=== PATIENT | female | born 1970 | race Caucasian/White ===

== ENCOUNTER 2017-03-02 16:30 | Observation (INO) ==
[2017-03-02] MEDS ORDERED: Ondansetron 4 MG/2 ML VIAL IVP ONE (16:46)
[2017-03-02] MEDS ORDERED: 0.9 % Sodium Chloride 1,000 ML IVC ONE ×2 (16:46→18:20)
--- NOTE | 2017-03-02 16:46 | Emergency Department Note ---
Disposition Clinical Impression: Gastroenteritis, Dehydration, Acute renal insufficiency Disposition: Admitted As Inpatient Condition: Good Referrals: Yessi Schuster [Primary Care Provider] - Forms: ED Satisfaction Letter Abdominal Pain HPI - General Chief Complaint: ED Nausea/Vomiting/Diarrhea Stated Complaint: vomiting, stomache soreness Time Seen by Provider: 03/02/17 16:34 Source: patient Mode of arrival: private vehicle Limitations: no limitations Nursing Notes Reviewed: Yes Vital Signs Reviewed: Yes - History of Present Illness HPI Narrative: The patient relates that she has been taking the "stomach flu" for about a week. She laid she had nausea, vomiting and diarrhea. The diarrhea has abated but she continues with vomiting and sleeping. She has not been passing any blood or mucus. She states her abdomen is very sore from the vomiting without other localizing pain. She rates she is started getting weak and dizzy when she stands to walk around. She is concerned that she is getting dehydrated. She does note that she is urinating with less frequency. She denies any fevers or chills. Denies cough, chest pain or shortness of breath. She states she has been exposed her who had a similar syndrome. She denies concerned of food borne illness, recent antibiotics or recent travel. Pt Subjective Complaint: abdominal pain, other (Vomiting and diarrhea) Onset (ago): week(s) (1) Consistency: Worsening Location: diffuse Pain Severity: moderate Quality: aching, dull Radiation: none Migration to: no migration Improves with: rest Worsens with: vomiting, movement Context: sick contacts Associated symptoms: Reports: nausea, vomiting, diarrhea, anorexia. Denies: fever, chills, constipation, dysuria, hematemesis, hematochezia, melena, hematuria, syncope - Related Data Home Medications Medication Instructions Recorded Confirmed Alprazolam [Xanax] 0.5 mg PO QID 06/19/15 03/02/17 Citalopram Hydrobromide [Celexa] 40 mg PO DAILY 06/19/15 03/02/17 Neurontin 600 mg PO TID 06/19/15 03/02/17 Imitrex 25 mg PO DAILY PRN 10/05/15 03/02/17 Lisinopril [Zestril] 10 mg PO DAILY 02/28/16 03/02/17 Metoprolol [Lopressor] 100 mg PO BID 02/28/16 03/02/17 Topiramate [Topamax] 50 mg PO DAILY 04/12/16 03/02/17 TraZODone 100 mg PO HS 01/13/17 03/02/17 Previous Rx's Medication Instructions Recorded Pantoprazole Sodium [Protonix] 20 mg PO BID #30 tab 05/31/16 Allergies Allergy/AdvReac Type Severity Reaction Status Date / Time acetaminophen [From Fioricet] Allergy Drowsy Verified 01/28/17 23:18 butalbital [From Fioricet] Allergy Drowsy Verified 01/28/17 23:18 caffeine [From Fioricet] Allergy Drowsy Verified 01/28/17 23:18 diphenhydramine Allergy Drowsy Verified 01/28/17 23:18 [From Benadryl] ketorolac [From Toradol] Allergy Rash Verified 01/28/17 23:18 venlafaxine [From Effexor] AdvReac Seizure Verified 01/28/17 23:18 All systems ED: reviewed and negative except as stated. Abdominal Pain PMH - Past Medical History Medical history: Reports: CVA, hypertension, migraine Female Surgical History: Reports: appendectomy, cholecystectomy, other [employer] history: Reports: no [employer] history, other Psychiatric history: Reports: anxiety, bipolar, depression, panic disorder, other - Social History Smoking status: Never smoker Alcohol use: Reports: none Drug use: Reports: none Physical Exam - General Limitations: no limitations General appearance: alert, in no apparent distress - Head Head exam: atraumatic, normocephalic, normal inspection - Eye Eye exam: Present: normal appearance, PERRL, EOMI. Absent: scleral icterus, conjunctival injection - ENT ENT exam: normal exam, normal oropharynx, mucous membranes moist - Neck Neck exam: Present: normal inspection, full ROM, trachea midline. Absent: tenderness, lymphadenopathy - Chest Chest inspection: Present: normal inspection, symmetric chest wall rise - Respiratory Respiratory exam: Present: normal lung sounds bilaterally. Absent: respiratory distress, wheezes, prolonged expiratory phase - Cardiovascular Cardiovascular exam: Present: regular rate, normal rhythm, tachycardia, normal heart sounds - Abdominal Exam Abdominal exam: Present: soft, tenderness, normal bowel sounds. Absent: distention, guarding, rebound, rigidity Abdominal tenderness: Present: diffuse, mild - Extremities Exam Extremities exam: Present: normal inspection, full ROM, normal capillary refill. Absent: tenderness, pedal edema, calf tenderness - Expanded Lower Extremity Exam Neurovascular/Tendon exam: Present: normal capillary refill. Absent: motor deficit, sensory deficit, tendon deficit Gait: observed and normal - Back Exam Back exam: Present: normal inspection, full ROM. Absent: tenderness, CVA tenderness (R), CVA tenderness (L) - Neurological Exam Neurological exam: Present: alert, oriented X3, normal gait - Psychiatric Psychiatric exam: Present: normal affect, normal mood - Skin Skin exam: Present: warm, dry, intact, pallor. Absent: cyanosis, diaphoresis Course Vital Signs Temperature 99.5 F 03/02/17 16:35 Pulse Rate 118 03/02/17 16:35 Respiratory Rate 18 03/02/17 16:35 Blood Pressure 106/66 03/02/17 16:35 O2 Sat by Pulse Oximetry 95 03/02/17 16:35 Temperature 99.5 F 03/02/17 16:41 Pulse Rate 96 03/02/17 18:01 Respiratory Rate 20 03/02/17 18:01 Blood Pressure 95/50 03/02/17 18:01 O2 Sat by Pulse Oximetry 90 03/02/17 18:01 Oxygen Delivery Oxygen Delivery Room Air Abdominal Pain - Differential Diagnosis Differential Diagnosis: Likely: abdominal pain non-specific, gastroenteritis - Medical Records Medical records reviewed: Yes I reviewed the patient's medical records. - Lab Data Lab results reviewed: Yes I reviewed the patient's lab results. Result diagrams: 03/02/17 17:37 03/02/17 17:37 Lab Results 03/02/17 03/02/17 Range/Units 17:37 17:37 WBC 7.6 (4.3-11.1) K/mcL RBC 4.11 (3.82-4.97) M/mcL Hgb 10.4 L (11.5-15.4) g/dL Hct 31.9 L (35.3-44.9) % MCV 77.6 L (83.0-100.0) fL MCH 25.3 L (28.0-33.3) pg MCHC 32.6 (31.6-35.5) g/dL RDW 15.6 H (11.5-14.5) % Plt Count 261 (140-400) K/mcL MPV 8.7 L (9.4-12.4) fL Immature Gran % 1.6 (0-4) % Seg Neutrophils % 60.3 % Lymphocytes % 27.2 % Monocytes % 8.1 % Eosinophils % 2.1 % Basophils % 0.7 % Neutrophils # 4.6 (1.6-8.9) K/mcL Lymphocytes # 2.1 (0.6-4.6) K/mcL Monocytes # 0.6 (0.0-1.3) K/mcL Eosinophils # 0.2 (0.0-0.6) K/mcL Basophils # 0.1 (0.0-0.2) K/mcL Sodium 129 L (136-145) mEq/L Potassium 3.0 L (3.5-4.5) mEq/L Chloride 97 L (98-109) mEq/L Carbon Dioxide 17 L (19-29) mEq/L BUN 28 H (7-20) mg/dL Creatinine 2.34 H (0.57-1.11) mg/dL Est GFR ( Amer) 27 L (> 60) Est GFR (Non-Af Amer) 23 L (> 60) BUN/Creatinine Ratio 12 (6-26) Glucose 100 H (70-99) mg/dL Calculated Osmolality 274 L (280-300) Calcium 8.0 L (8.6-10.8) mg/dL
[2017-03-02] MEDS ORDERED: *HR* Nalbuphine 20 MG/ML AMPUL IVP ONE ×2 (16:47→18:21)
[2017-03-02 17:48] LABS: Basophils # 0.1 K/mcL (0.0-0.2); Basophils % 0.7 %; Eosinophils # 0.2 K/mcL (0.0-0.6); Eosinophils % 2.1 %; Hematocrit 31.9 % (35.3-44.9); Hemoglobin 10.4 g/dL (11.5-15.4); Immature Granulocytes % 1.6 % (0-4); Lymphocytes # 2.1 K/mcL (0.6-4.6); Lymphocytes % 27.2 %; Mean Corpuscular HGB Conc 32.6 g/dL (31.6-35.5); Mean Corpuscular Hemoglobin 25.3 pg (28.0-33.3); Mean Corpuscular Volume 77.6 fL (83.0-100.0); Mean Platelet Volume 8.7 fL (9.4-12.4); Monocytes # 0.6 K/mcL (0.0-1.3); Monocytes % 8.1 %; Neutrophils # 4.6 K/mcL (1.6-8.9); Platelet Count 261 K/mcL (140-400); Red Blood Count 4.11 M/mcL (3.82-4.97); Red Cell Distribution Width 15.6 % (11.5-14.5); Segmented Neutrophils % 60.3 %
[2017-03-02] MEDS ORDERED: Naloxone 0.4 MG/ML INJ IVP PRN (19:43)
[2017-03-02] MEDS ORDERED: Ondansetron 4 MG/2 ML VIAL IVP PRN (19:43)
[2017-03-02] MEDS ORDERED: SUMAtriptan 25 MG TABLET PO PRN (19:43)
[2017-03-02] MEDS: 0.9 % Sodium Chloride w KCl 20 MEQ/1,000 ML MLS IVC SCH (20:34)
[2017-03-02] MEDS: *HR* HYDROmorphone (PF) 1 MG/ML SYRINGE IVP PRN (21:37)
[2017-03-03] MEDS: 0.9 % Sodium Chloride w KCl 20 MEQ/1,000 ML MLS IVC SCH ×2 (01:01→10:29)
[2017-03-03] MEDS: *HR* HYDROmorphone (PF) 1 MG/ML SYRINGE IVP PRN ×5 (01:08→18:47)
[2017-03-03] MEDS: Gabapentin 300 MG CAPSULE PO SCH ×4 (01:08→21:49)
[2017-03-03 06:19] LABS: Potassium 4.3 mEq/L (3.5-4.5)
[2017-03-03] MEDS: Topiramate 25 MG TABLET PO SCH (10:28)
--- NOTE | 2017-03-03 11:32 | Internal Med History&Physical ---
Date of Encounter: 03/03/17 Time of Encounter: 10:45 Assessment and Plan (1) Vomiting and diarrhea Current visit: No Status: Resolved Suspect acute gastroenteritis. Will continue IV fluids and prn anti-emetics. Recheck labs in a.m. (2) Acute renal insufficiency Current visit: Yes Status: Acute Suspect secondary to dehydration from vomiting and diarrhea. IV fluids have been ordered. Follow-up labs today show significant improvement with creatinine decreased to 1.28 and estimated GFR now 45. (3) Hypertension Current visit: No Status: Chronic We will hold Lopressor and Zestril since she has borderline hypotension. Qualifiers: Hypertension type: essential hypertension Qualified Code(s): I10 - Essential (primary) hypertension (4) Microcytic anemia Current visit: No Status: Chronic Suspect iron deficiency. We will order anemia testing. Internal Medicine - H&P: HPI Chief complaint: Vomiting and diarrhea Admitted From: Home Plans for Post Hospital Care: Home History of present illness: Ms. Navarro is a 46 year old female who came to emergency room stating she had vomiting and diarrhea for the past one and half weeks. She noted minimal hematemesis with one episode of vomiting. She reports her diarrhea was liquid stool but no obvious blood. When her symptoms did not improve and she began to feel dizzy she decided to come to emergency room. She was found to have electrolyte imbalance with acute renal insufficiency and microcytic anemia. She was admitted to [facility] floor for ongoing care needs. She states she has not vomited since supper last evening. Her abdominal pain has improved. She was hospitalized approximately one year ago at [facility] with similar complaints. Her GI history is pertinent for hiatal hernia with occasional GERD symptoms. She had GI bleed in 2012 with EGD at [facility]. She states an ulcer was found. She has not had known bleeding since then but was iron deficient during her last [facility] stay January 2016 and was given iron infusion. She reports she had perforated abdominal viscus requiring surgical repair in 2014. She has had cholecystectomy but denies disorders of her liver or exocrine pancreas. Past Med Surg Social Fam HX - Past Medical History Medical history: CVA, hypertension, migraine Psychiatric history: anxiety, bipolar, depression, panic disorder, other - Past Surgical History Surgical History: appendectomy, cholecystectomy, orthopedic, other (Left ankle fixation), other (Bowel perforation October 2015, hiatal hernia repair, right frontal craniotomy and evacuation of subdural hemorrhage) - Social History Smoking Status: Never smoker Smokeless Tobacco Status: No Alcohol use: none Drug use: none - Family History Father Name: Winston Living Status: Still Living Hx Family Cardiac Disorders: Yes Hx Family Respiratory Disorders: Yes Hx Family Cancer: No Hx Family GI Disorders: No Hx Family Genitourinary Disorders: No Hx Family Endocrine Disorder: No Hx Family Musculoskeletal Disorders: No Hx Family Neuromuscular Disorders: No Hx Family Neurologic Disorders: No Hx Family HEENT Disorders: No Hx Family Autoimmune Disorders: No Hx Family Psychosocial Disorders: No Hx Family Medical Disorders: No Internal Medicine - H&P: Meds Alprazolam [Xanax] 0.5 mg PO QID 06/19/15 [History] Citalopram Hydrobromide [Celexa] 40 mg PO DAILY 06/19/15 [History] Neurontin 600 mg PO TID 06/19/15 [History] Imitrex 25 mg PO DAILY PRN 10/05/15 [History] Lisinopril [Zestril] 10 mg PO DAILY 02/28/16 [History] Metoprolol [Lopressor] 100 mg PO BID 02/28/16 [History] Topiramate [Topamax] 50 mg PO DAILY 04/12/16 [History] Pantoprazole Sodium [Protonix] 20 mg PO BID #30 tab 05/31/16 [Rx] TraZODone 100 mg PO HS 01/13/17 [History] Allergies acetaminophen [From Fioricet] Allergy (Verified 01/28/17 23:18) Drowsy butalbital [From Fioricet] Allergy (Verified 01/28/17 23:18) Drowsy caffeine [From Fioricet] Allergy (Verified 01/28/17 23:18) Drowsy diphenhydramine [From Benadryl] Allergy (Verified 01/28/17 23:18) Drowsy ketorolac [From Toradol] Allergy (Verified 01/28/17 23:18) Rash venlafaxine [From Effexor] Adverse Reaction (Verified 01/28/17 23:18) Seizure All Systems PM: A 10-system review of systems was performed and is negative for pertinent findings except as documented above in the HPI. Review of systems: Gen.: Her weight has increased from 79.515 kilograms at January 2016 hospitalization to 91.172 kg now Cardiovascular: She has history of hypertension. She had pulmonary embolism in 2009 following shoulder surgery. She denies [place] heart failure or other cardiovascular disorders. Respiratory: She is a lifelong nonsmoker and has no documented chronic lung disease. She wears BiPAP at bedtime without oxygen but denies a diagnosis of RUT. GI: As per history of present illness : She denies known chronic kidney disease. She states she does straight catheter at home twice daily for urinary retention. Neurologic: She had intracranial hemorrhage July 2014 with craniotomy procedure for decompression intervention. She had seizures following the stroke with her last seizure in 2013. She has migraine headaches. She has decreased left peripheral vision from stroke. Endocrine: She denies diabetes thyroid disease or hyperlipidemia Hematology/oncology: She has history of anemia and received IV iron infusion during the January 2016 hospitalization. She denies further iron therapy. She was also found to have B12 and folate deficiency during that stay but is uncertain how long she continued on those supplements. Psychiatric: She has panic disorder and bipolar disorder Musk skeletal: She has degenerative disc disease but denies significant arthritis gout or other bone joint or muscle disorders. - Constitutional Vitals: Temp Pulse Resp BP Pulse Ox 97.4 F L 93 18 95/61 99 03/03/17 03:55 03/03/17 08:32 03/03/17 08:32 03/03/17 08:32 03/03/17 08:32 Exam: Gen.: She is well-developed well-nourished female who appears in no severe distress at present time. HEENT: Head is atraumatic and normocephalic. Eyes: EOMI. There is no scleral icterus. Mouth: Mucosa is moist. Neck: Supple and nontender. There is no thyromegaly or adenopathy noted. Heart: Regular with rate approximately 100/m. No murmurs or gallops are heard. Lungs: No wheezes or crackles are heard. Abdomen: Bowel sounds are diminished. There is mild tenderness to palpation. No masses or guarding are noted. Extremities: There is no cyanosis edema clubbing noted. Dorsalis pedis and posterior tibial pulses are 1-2 over 2 bilaterally. Neurologic: Mental status: She is talkative but has difficulty recalling some details of her past history because of past intracranial hemorrhage with neurosurgical procedures. Cranial nerves: Smile is symmetric. Forehead wrinkles bilaterally. Tongue protrudes midline. EOMI. Motor: There is no pronator drift. Cerebellar: Finger to nose is intact bilaterally. Skin: Warm and dry Internal Med - H&P Results - Labs CBC & Chem 7: 03/02/17 17:37 03/03/17 05:35 Labs: BMP 03/03/17 05:35 Sodium 139 D Potassium 4.3 D Chloride 111 H Carbon Dioxide 17 L BUN 18 D Creatinine 1.28 H Glucose 92 Calcium 8.0 L
[2017-03-03] MEDS: 0.45 % Sodium Chloride w/KCl 20 MEQ/1,000 ML MLS IVC SCH (12:58)
[2017-03-03 14:26] LABS: Basophils % 0.6 %; Eosinophils # 0.2 K/mcL (0.0-0.6); Hemoglobin 9.5 g/dL (11.5-15.4); Immature Granulocytes % 0.7 % (0-4); Lymphocytes # 1.3 K/mcL (0.6-4.6); Lymphocytes % 19.6 %; Mean Corpuscular HGB Conc 31.7 g/dL (31.6-35.5); Mean Platelet Volume 9.6 fL (9.4-12.4); Monocytes # 0.5 K/mcL (0.0-1.3); Monocytes % 7.8 %; Neutrophils # 4.6 K/mcL (1.6-8.9); Platelet Count 238 K/mcL (140-400); Red Blood Count 3.66 M/mcL (3.82-4.97); Red Cell Distribution Width 15.9 % (11.5-14.5); Segmented Neutrophils % 68.3 %
[2017-03-03 14:41] LABS: Magnesium 2.1 mg/dL (1.6-2.6)
[2017-03-03 18:14] LABS: Folate 12.8 ng/mL (7.0-31.4)
[2017-03-04] MEDS: *HR* HYDROmorphone (PF) 1 MG/ML SYRINGE IVP PRN ×2 (00:47→10:45)
[2017-03-04] MEDS: 0.45 % Sodium Chloride w/KCl 20 MEQ/1,000 ML MLS IVC SCH (02:15)
[2017-03-04 05:47] LABS: Basophils % 0.5 %; Eosinophils # 0.2 K/mcL (0.0-0.6); Eosinophils % 3.7 %; Hematocrit 27.7 % (35.3-44.9); Hemoglobin 8.6 g/dL (11.5-15.4); Immature Granulocytes % 0.6 % (0-4); Lymphocytes # 1.9 K/mcL (0.6-4.6); Lymphocytes % 29.4 %; Mean Corpuscular Hemoglobin 25.5 pg (28.0-33.3); Mean Corpuscular Volume 82.2 fL (83.0-100.0); Mean Platelet Volume 9.2 fL (9.4-12.4); Monocytes # 0.6 K/mcL (0.0-1.3); Monocytes % 9.4 %; Neutrophils # 3.7 K/mcL (1.6-8.9); Platelet Count 236 K/mcL (140-400); Red Blood Count 3.37 M/mcL (3.82-4.97); Red Cell Distribution Width 15.7 % (11.5-14.5); Segmented Neutrophils % 56.4 %
[2017-03-04 06:15] LABS: Alanine Aminotransferase 57 Units/L (0-55); Albumin 3.2 g/dL (3.5-5.0); Albumin/Globulin Ratio 1.1 (1.1-2.2); Alkaline Phosphatase 69 Units/L (38-126); Aspartate Amino Transferase 25 Units/L (5-34); BUN/Creatinine Ratio 8 (6-26); Bilirubin,Total 0.3 mg/dL (0.2-1.2); Blood Urea Nitrogen 7 mg/dL (7-20); Carbon Dioxide 22 mEq/L (19-29); Chloride 111 mEq/L (98-109); Globulin 2.8 g/dL (2.4-3.5); Glucose 90 mg/dL (70-99); Osmolality,Calculated 292 (280-300); Potassium 4.6 mEq/L (3.5-4.5); Sodium 142 mEq/L (136-145); eGFR For African Americans > 60 (> 60); eGFR For Non-African Americans > 60 (> 60)
[2017-03-04] MEDS: Topiramate 25 MG TABLET PO SCH (08:34)
[2017-03-04] MEDS: Gabapentin 300 MG CAPSULE PO SCH (08:34)
[2017-03-04 10:47] VITALS: BP 117/75
--- NOTE | 2017-03-04 10:53 | Discharge Summary ---
Date of Encounter: 03/04/17 Time of Encounter: 10:40 - Discharge Diagnosis (1) Vomiting and diarrhea Priority: Primary Status: Resolved (2) Acute renal insufficiency Priority: Secondary Status: Resolved (3) Hypertension Priority: Secondary Status: Chronic Qualifiers: Hypertension type: essential hypertension Qualified Code(s): I10 - Essential (primary) hypertension (4) Microcytic anemia Priority: Secondary Status: Chronic - Discharge Medications Home Medications: Alprazolam [Xanax] 0.5 mg PO QID 06/19/15 [History] Citalopram Hydrobromide [Celexa] 40 mg PO DAILY 06/19/15 [History] Neurontin 600 mg PO TID 06/19/15 [History] Imitrex 25 mg PO DAILY PRN 10/05/15 [History] Topiramate [Topamax] 50 mg PO DAILY 04/12/16 [History] Pantoprazole Sodium [Protonix] 20 mg PO BID #30 tab 05/31/16 [Rx] TraZODone 100 mg PO HS 01/13/17 [History] Metoprolol [Lopressor] 50 mg PO BID #0 03/04/17 [Rx] Allergies/Adverse Reactions: Allergies acetaminophen [From Fioricet] Allergy (Verified 01/28/17 23:18) Drowsy butalbital [From Fioricet] Allergy (Verified 01/28/17 23:18) Drowsy caffeine [From Fioricet] Allergy (Verified 01/28/17 23:18) Drowsy diphenhydramine [From Benadryl] Allergy (Verified 01/28/17 23:18) Drowsy ketorolac [From Toradol] Allergy (Verified 01/28/17 23:18) Rash venlafaxine [From Effexor] Adverse Reaction (Verified 01/28/17 23:18) Seizure Date of admission: 03/02/17 18:50 Primary care physician: Yessi Schuster Consults: 03/02/17 23:02 Consult to Pastoral Services [CONS] Routine Comment: - Patient Status Disposition: Home, Self-Care Condition: Good Functional capacity at discharge: independent ambulation Overall status at discharge: patient is progressing back to baseline - Discharge Instructions Follow Up With: Yessi Schuster [Primary Care Provider] - 1 week - Diet and Activity Activity: resume usual activities as tolerated Diet: advance to your usual diet Hospital course: Ms. Navarro is a 46 year old female who came to emergency room stating she had vomiting and diarrhea for the past one and half weeks. She noted minimal hematemesis with one episode of vomiting. She reports her diarrhea was liquid stool but no obvious blood. When her symptoms did not improve and she began to feel dizzy she decided to come to emergency room. She was found to have electrolyte imbalance with acute renal insufficiency and microcytic anemia. She was admitted to [facility] for ongoing care needs. Initial orders were written by the emergency room physician. I saw her on March 03 and performed a history and physical. She was given IV fluids. Azotemia resolved with the creatinine being 7 and 0.86 respectively on the day of discharge with estimated GFR greater than 60. She had no vomiting the last 24 hours of hospitalization. Supplemental potassium was given and hypokalemia resolved. Anemia testing showed iron 67, transferrin saturation 16%, ferritin 19, B12 553 , and folate 12.8. Hemoglobin decreased to 8.6 with IV fluid administration. I will let her PCP monitor this. She had borderline hypotension so Zestril was discontinued. Her metoprolol will be decreased to 50 mg twice a day. On March 04 I felt she was stable for discharge home. She will follow with her PCP Yessi Schuster CNP within 1 week. - Time Spent with Patient Total time spent providing and/or coordinating discharge services: - Constitutional Vitals: Temp Pulse Resp BP Pulse Ox 99.8 F H 82 16 117/75 95 03/04/17 10:45 03/04/17 10:45 03/04/17 10:45 03/04/17 10:45 03/04/17 10:45
== END 2017-03-04 11:42 | disposition home or self-care (01) ==
LOC: EMEROOPIK 16:30 → INPPIK 16:30
PROVIDERS: ADMIT Internal Medicine; ATTEND Internal Medicine